=== PATIENT | female | born 1935 | race Caucasian/White ===

== ENCOUNTER 2018-01-01 09:31 | Inpatient (IN) ==
[2018-01-01] MEDS ORDERED: cefOXitin 2,000 MG in Water for inj. (sterile) 20 ML 10 ML IVP ONE (10:02)
[2018-01-01] MEDS ORDERED: Ringers Solution, Lactated 1,000 ML IVC SCH (10:15)
--- NOTE | 2018-01-01 11:31 | Anesthesia Evaluation PreOp ---
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 Other Medical History: Diabetes Type II, Other (Hyperuricemia) Anesthesia History: No Prior Anesthetic Complications, Past Anesthesia Alcohol Use: none Drug use: none Medications and Allergies Amiloride/HCTZ 5-50mg [Moduretic 5-50mg] 0.5 tab PO DAILY 12/10/17 [History] Cinnamon Bark [Cinnamon] 500 mg PO DAILY 12/10/17 [History] Fluticasone Propionate Nasal [Flonase] 1 spray NS BID 12/10/17 [History] Garlic 300 mg PO DAILY 12/10/17 [History] GlipiZIDE XL (24 HR) [Glucotrol XL] 2.5 mg PO DAILY 12/10/17 [History] Ipratropium [place] 1 spr NS BID 12/10/17 [History] Niacin [Niaspan] 500 mg PO DAILY 12/10/17 [History] [place]-3/Dha/Epa/Fish Oil [Fish Oil 1,000 mg Softgel] 1 tab PO DAILY 12/10/17 [ History] Pravastatin Sodium [Pravastatin Sodium] 10 mg PO DAILY 12/10/17 [History] Propranolol [Inderal] 10 mg PO DAILY 12/10/17 [History] Valsartan [Valsartan] 160 mg PO DAILY 12/10/17 [History] 3 Allergy/AdvReac Type Severity Reaction Status Date / Time atorvastatin [From Lipitor] AdvReac Muscle Pain Verified 12/19/17 09:11 metformin AdvReac See Verified 12/19/17 09:11 Comments - Meds/Allergy Pre-op Review Medications Reviewed: Yes Allergies Reviewed: Yes Beta Blockers on Current Med List: Yes If Beta Blockers taken, Date/Time (Last Dose taken): 829 Anesthesia Results - Labs Laboratory Tests 11/15/17 11/15/17 12/19/17 09:23 09:23 09:50 Hgb 13.4 Hct 40.6 Plt Count 270 Sodium 138 Potassium Carbon Dioxide 29 BUN 18 Creatinine Est GFR (Non-Af Amer) Hemoglobin A1c 6.9 H Calcium 9.7 Total Bilirubin 0.6 Albumin 4.0 12/19/17 09:50 Hgb Hct Plt Count Sodium Potassium 4.0 Carbon Dioxide BUN Creatinine 0.82 Est GFR (Non-Af Amer) > 60 Hemoglobin A1c Calcium Total Bilirubin Albumin - Imaging EKG: report reviewed (SINUS BRADYCARDIA WITH SINUS ARRHYTHMIA BORDERLINE LEFT AXIS DEVIATION VOLTAGE CRITERIA FOR LVH) Additional studies: TTE 06/2017: LVEF 60-65%. Normal LV chamber size, wall thickness and function. Mild left ventricular diastolic dysfunction. Normal right ventricular structure and function. Mild pulmonary hypertension. No significant valvular dysfunction. 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 Risks, benefits, and alternatives discussed. Patient wishes to proceed.
--- NOTE | 2018-01-01 12:30 | History & Physical Report ---
Date of Encounter: 01/01/18 Time of Encounter: 12:28 24 Hour HP Update - Instructions Instructions: If the History and Physical is less than 30 days old and was completed prior to A.M. admission and or procedure and has NOT been updated on calendar day of procedure please complete this update prior to performing procedure. - Update Patient reports changes in Medical Condition: No Changes in examination, assessment, or condition: No Changes in Medication: No Preop tests/diagnostics Reviewed: Yes Surgery Remains Indicated: Yes Consent for Planned Operative Procedure(s) Verified: Yes - Pre-Operative Checklist Preoperative Checklist Indicated: Yes Prophylactic Antibiotic Ordered: Yes Home Medications Include Beta Leta: Yes Beta Leta Taken Today (Day of Surgery): Yes
[2018-01-01] MEDS ORDERED: *HR* Rocuronium Bromide 50 MG/5 ML VIAL ONE (13:30)
[2018-01-01] MEDS ORDERED: Lidocaine -MPF 4% 5 ML AMPUL ONE (13:30)
[2018-01-01] MEDS ORDERED: Ondansetron 4 MG/2 ML VIAL ONE (13:30)
[2018-01-01] MEDS ORDERED: *HR* Propofol 200 MG/20 ML VIAL IVP ONE (13:30)
[2018-01-01] MEDS ORDERED: *HR* FentaNYL (PF) 100 MCG/2 ML VIAL ONE (13:30)
[2018-01-01] MEDS ORDERED: *HR* PHENYLEPHRINE 1,000 MCG/10 ML SYRINGE IVP ONE (13:30)
[2018-01-01] MEDS ORDERED: EPHEDrine 50 MG/ML VIAL ONE (13:30)
[2018-01-01] MEDS ORDERED: Dexamethasone 4 MG/ML VIAL ONE (13:30)
[2018-01-01] MEDS ORDERED: Lidocaine -MPF 2% 2 ML VIAL ONE (13:30)
[2018-01-01] MEDS ORDERED: Neostigmine Methylsulfate 3 MG/3 ML SYRINGE ONE (14:09)
[2018-01-01] MEDS ORDERED: *HR* Labetalol 20 MG/4 ML SYRINGE IVP PRN (14:12)
[2018-01-01] MEDS ORDERED: Ondansetron 4 MG/2 ML VIAL IVP ONE (14:12)
[2018-01-01] MEDS ORDERED: *HR* OxyCODONE Immed Rel 5 MG TABLET PO PRN (14:12)
[2018-01-01] MEDS ORDERED: *HR* Promethazine 25 MG/ML VIAL IVP PRN (14:12)
[2018-01-01] MEDS ORDERED: *HR* FentaNYL (PF) 100 MCG/2 ML VIAL IVP PRN (14:12)
[2018-01-01] MEDS ORDERED: MORPHINE SUL Oral CONC 10 MG/0.5 ML ORAL.SYG SL PRN (14:12)
[2018-01-01] MEDS ORDERED: *HR* Morphine 10 MG/ML VIAL ONE (14:49)
--- NOTE | 2018-01-01 16:52 | Operative Note ---
Date of procedure: 01/01/18 Pre-op diagnosis: Sigmoid colon cancer Post-op diagnosis: same Procedure: Robotic sigmoid colon resection with 25 mm EEA stapling Anesthesia: PAM Surgeon: Wyatt Avalos Was there an marketing operations assistant present: No Estimated blood loss (cc): 5 Specimen: Sigmoid colon Condition: stable Disposition: same day Procedure in Detail: After informed consent, patient taken operating room placed supine position. After adequate sedation anesthesia patient was placed in a lithotomy position. After proper timeout a 12 mm cannula site was placed right superior to the umbilicus. Pneumoperitoneum was greater. A 13 mm cannula was placed in right lower quadrant. 5 mm camera was placed in the right upper quadrant. An 8 mm cannula was placed in subxiphoid region followed by another 8 mm in the left lower quadrant. Patient was placed in a headdown position. The robot was docked over the patient's left hip. Small bowel swept out of the pelvis. Rectosigmoid colon was then grasped and retracted cephalad. The peritoneum was then scored level of the sacral promontory. The left ureter was identified and kept on harm's way. The inferior mesenteric artery was then taken with a vessel sealer. The lateral rectosigmoid stalks were taken down the vessel sealer. The dissection was carried out down to approximate 4 cm above the pelvic floor. Rectosigmoid colon was dissected free from the retro-pubic tubercle region. Once it was freed a 45 mm robotic Endo staplers fired across the rectum. Once it was retracted and area was demarcated on the sigmoid colon for transection. Indocyanine green was infused and we had excellent perfusion. The splenic flexure was also taken down and mobilized. This mobilization allowed for less tension on the anastomosis. A counterincision was made in the suprapubic region. Dissection carried down the anterior rectus sheath. The rectus muscles were then divided in the midline with Jasmin clamp. Once they were split the rectosigmoid colon was delivered. Robyn bowel clamps are used to place across the colon proximal and distal and transected. Allis clamps are placed on the bowel and then a pursestring suture device placed on the colon. 3-0 Prolene suture was passed. A pursestring sutures and created and a 25 mm EEA anvil was placed. Suture was tied and secured. Colon was then placed back in the pelvis. The stapler was passed through the anal canal and to the rectal stump and then the spear was placed through the staple line. The anvil was then connected secured and fired. There were 2 excellent donuts. There were several 2-0 silk sutures used to buttress the staple line. A leak test revealed no leak. At that point the procedure was terminated. All incisions are closed with 0 Vicryl suture and 4-0 Vicryl suture. Marcaine was inserted in the Pfannenstiel incision. She tolerated the procedure well.
[2018-01-01] MEDS ORDERED: MORPHINE SUL Oral CONC 10 MG/0.5 ML ORAL.SYG PO PRN (17:02)
[2018-01-01] MEDS ORDERED: Naloxone 0.4 MG/ML INJ IVP PRN (17:12)
[2018-01-01] MEDS ORDERED: 0.9 % Sodium Chloride 1,000 ML IVC SCH (17:12)
--- NOTE | 2018-01-01 17:43 | Anesthesia Evaluation Post Op ---
Date of Encounter: 01/01/18 Time of Encounter: 16:05 Notes: Patient's vital signs have been reviewed. Patient is stable postoperatively and has adequately recovered from anesthesia. Patient is determined to have stable airway patency and respiratory function including respiratory rate and oxygen saturation. Patient has a stable heart rate, blood pressure and adequate hydration. Patients mental status is acceptable. Patients temperature is appropriate. Pain and nausea are adequately controlled. - Discharge PostOp Status: Transfer Patient to floor
[2018-01-01] MEDS ORDERED: Ketorolac 15 MG/ML VIAL IVP SCH (18:00)
[2018-01-01] MEDS: *HR* Heparin 5,000 UNIT/ML VIAL SQ SCH (18:12)
[2018-01-02] MEDS: *HR* Heparin 5,000 UNIT/ML VIAL SQ SCH ×2 (05:52→19:46)
[2018-01-02 06:15] LABS: Hematocrit 36.4 % (35.3-44.9); Hemoglobin 12.3 g/dL (11.5-15.4); Immature Granulocytes % 0.3 % (0-4); Lymphocytes % 11.9 %; Mean Corpuscular HGB Conc 33.8 g/dL (31.6-35.5); Mean Corpuscular Hemoglobin 30.4 pg (28.0-33.3); Mean Corpuscular Volume 89.9 fL (83.0-100.0); Mean Platelet Volume 10.8 fL (9.4-12.4); Monocytes # 0.3 K/mcL (0.0-1.3); Monocytes % 3.9 %; Neutrophils # 7.3 K/mcL (1.6-8.9); Platelet Count 245 K/mcL (140-400); Red Blood Count 4.05 M/mcL (3.82-4.97); Red Cell Distribution Width 13.4 % (11.5-14.5); Segmented Neutrophils % 83.9 %
[2018-01-02 06:32] LABS: BUN/Creatinine Ratio 22 (6-26); Blood Urea Nitrogen 15 mg/dL (8-23); Calcium 8.9 mg/dL (8.6-10.3); Carbon Dioxide 27 mEq/L (23-29); Chloride 99 mEq/L (98-107); Glucose 170 mg/dL (70-105); Osmolality,Calculated 279 (280-300); Potassium 3.9 mEq/L (3.5-5.1); Sodium 132 mEq/L (136-145); eGFR For African Americans > 60 (> 60); eGFR For Non-African Americans > 60 (> 60)
--- NOTE | 2018-01-02 10:24 | General Surgery Progress Note ---
Date of Encounter: 01/02/18 Time of Encounter: 08:00 - Assessment and Plan (1) Malignant neoplasm of sigmoid colon Current Visit: Yes Status: Acute POD1 sigmoid resection with Dr. Avalos (01/01/18). 40mm x 40mm polypoid mass with central ulceration identified on colonoscopy by Dr. Schaffer on 12/10 Patient is tolerating procedure well, she is afebrile, suprapubic incision intact, no drainage, no erythema Plan: Continue clear liquid diet supportive care pain management incentive spirometry ambulate tid with assist EPCDs Subjective Narrative: Ms. Santamaria, POD1 sigmoid colon resection with Dr. Avalos on 01/01 in setting of 40mm by 40mm malignant neoplasm. Patient states her pain is in good control. She has tolerated her clear liquid diet without nausea or vomiting. She has no fevers, has not experienced flatus yet, no dysuria. Objective Vital Signs - Last 8 Hours Temp Pulse Resp BP Pulse Ox 01/02/18 06:59 97.3 F L 56 16 124/63 94 01/02/18 04:39 98.0 F 54 16 109/59 95 Intake and Output 01/01/18 01/02/18 01/02/18 23:59 07:59 15:59 Intake Total 480 / 480 600 / 600 Output Total 150 / 150 300 / 300 500 / 500 Balance 330 / 330 -300 / -300 100 / 100 Intake: Oral 480 / 480 600 / 600 Output: Urine 150 / 150 300 / 300 500 / 500 Other: Meal Dinner clears # Voids 1 - General physical appearance well developed, well nourished, no distress - Eyes normal ocular movement - ENT normal mucosa - Neck Neck exam: no lymphadectomy - Respiratory normal expansion, normal respiratory effort, clear to auscultation - Cardiovascular Cardiovascular exam: Present: RRR, no murmurs/rubs/gallops. Absent: JVD - Abdomen Abdomen: Present: soft Hernia: none - Incision Incision: Present: clean and dry. Absent: inflamed (intact, suprapubic incision non erythematous, no hematoma, no drainage, no evidence of cellulitis) - Integumentary no abnormal pigmentation - Neurologic normal coordination, normal sensation - Psychiatric speech is normal, memory intact - Labs 01/02/18 05:21 01/02/18 05:21 Diabetes panel 01/02/18 Range/Units 05:21 Sodium 132 L (136-145) mEq/L Potassium 3.9 (3.5-5.1) mEq/L Chloride 99 (98-107) mEq/L Carbon Dioxide 27 (23-29) mEq/L BUN 15 (8-23) mg/dL Creatinine 0.68 (0.60-1.20) mg/dL Glucose 170 H (70-105) mg/dL Calcium 8.9 (8.6-10.3) mg/dL Calcium panel 01/02/18 Range/Units 05:21 Calcium 8.9 (8.6-10.3) mg/dL Pituitary panel 01/02/18 Range/Units 05:21 Sodium 132 L (136-145) mEq/L Potassium 3.9 (3.5-5.1) mEq/L Chloride 99 (98-107) mEq/L Carbon Dioxide 27 (23-29) mEq/L BUN 15 (8-23) mg/dL Creatinine 0.68 (0.60-1.20) mg/dL Glucose 170 H (70-105) mg/dL Calcium 8.9 (8.6-10.3) mg/dL Adrenal panel 01/02/18 Range/Units 05:21 Sodium 132 L (136-145) mEq/L Potassium 3.9 (3.5-5.1) mEq/L Chloride 99 (98-107) mEq/L Carbon Dioxide 27 (23-29) mEq/L BUN 15 (8-23) mg/dL Creatinine 0.68 (0.60-1.20) mg/dL Glucose 170 H (70-105) mg/dL Calcium 8.9 (8.6-10.3) mg/dL - VTE Documentation of Mechanical Device: Intermittent pneumatic compression device Consult Discharge Plan - Plan Referrals: Wyatt Avalos DO [Partnered Physician] - 01/14/18 8:45 am
[2018-01-02] MEDS ORDERED: Acetaminophen 325 MG TABLET PO PRN (10:58)
[2018-01-02] MEDS ORDERED: Ibuprofen 800 MG TABLET PO PRN (10:59)
[2018-01-02] MEDS ORDERED: *HR* HYDROcodone/Acet 5/325 mg TABLET PO PRN (10:59)
[2018-01-02] MEDS ORDERED: 0.9 % Sodium Chloride 1,000 ML IVC SCH (10:59)
[2018-01-02] MEDS: (Ipratropium Bromide [Ipratropium Bromide] 1 SPR) NS SCH (15:26)
--- NOTE | 2018-01-02 17:32 | Event Note ---
Date of Encounter: 01/02/18 Time of Encounter: 16:00 Patient POD1 sigmoid resection found to be tachycardic around 1501, patient denying exertional dyspnea, chest discomfort, or shortness of breath. Denies PMH afib. ECG obtained 1556 showed no p waves with venricular rate of 115, 1mm ST depression in v3, no st elevation, no t wave abnormalities, normal R wave progression. Patient was started on her daily propranolol 10mg. Patient re- evaluated 1700 with heart-rate on exam in the 50s, normal s1 s2, no s3 s4, no murmurs, continued to be asymptomatic. Repeat ECG 171 shows sinus bradycardia at 47bpm, normal MD interval, resolution of st depression v3. Patient states she never had a stress test, she reports in 1987 she had a LHC secondary to shortness of breath but does not recall detail beyond her coronaries at that time did not need stenting. Echocardiogram 06/17/17 for sinus bradycardia showed no wall motion abnormalities. EF of 60-65%. Recommend continuing daily propranolol. Tracking signs of volume depletion (VSS stable, creatinine and UOP appropriate). Continue hydration with PO liquids.
[2018-01-02] MEDS: Fluticasone Propionate Nasal 50 MCG/SPRAY BOTTLE NS SCH (22:51)
[2018-01-03] MEDS: (Ipratropium Bromide [Ipratropium Bromide] 1 SPR) NS SCH ×3 (00:32→20:50)
[2018-01-03] MEDS: *HR* Heparin 5,000 UNIT/ML VIAL SQ SCH ×2 (06:21→18:08)
--- NOTE | 2018-01-03 09:58 | Electrocardiograph Report ---
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
--- NOTE | 2018-01-03 10:32 | Discharge Summary ---
Orders not resulted at time of discharge: Pending orders 01/01/18 15:24 Surgical Pathology [PTH] Routine Date of Encounter: 01/03/18 Time of Encounter: 08:00 - Discharge Diagnosis (1) Malignant neoplasm of sigmoid colon Priority: Primary Status: Resolved Comments: Ms. Santamaria is a 82 year old female who presents for planned sigmoid resection with Dr. Avalos on 01/01 in setting of polypoid mass found on colonoscopy 12/10. Patient tolerated procedure well, started on clears / without nausea or vomiting. Incision suprapubically intact, no drainage, no fevers. Patient did have an episode of afib POD1 which resolved after resumption of her home propranolol she takes for hypertension. She did not have dyspnea, chest discomfort, or diaphoresis. She will follow-up in 2 weeks outpatient with [facility]. Today she is ambulating, has good UOP, no fevers. Plan is for conditional discharge today if she continues to tolerate her diet, vitals are stable. General Surgery Exam Initial Vital Signs Temp Pulse Resp BP Pulse Ox 98.2 F 53 18 142/66 95 01/01/18 10:06 01/01/18 10:06 01/01/18 10:06 01/01/18 10:06 01/01/18 10:06 - General physical appearance well developed, well nourished, no distress - Eyes normal ocular movement - ENT normal mucosa - Neck no masses, trachea midline - Respiratory normal expansion, normal respiratory effort, clear to auscultation - Cardiovascular Cardiovascular exam: Present: bradycardia (baseline; 50s), no murmurs/rubs/ gallops. Absent: JVD - Abdomen Abdomen general surgery: Present: soft, non tender Hernia: Present: none - Incision Incision: Present: clean and dry (suprapubic incision without erythema or exudate), intact - Integumentary Integumentary general surgery: Present: no abnormal pigmentation - Neurologic Present: normal coordination, normal sensation - Musculoskeletal Present: normal gait, normal posture - Psychiatric Psychiatric general surgery: Present: speech is normal, memory intact - Hospital Course Hospital course: Ms. Santamaria is a 82 year old female - Time Spent with Patient Total time spent providing and/or coordinating discharge services: - Discharge Medications Prescriptions: OxyCODONE/APAP 5/325 [Percocet 5/325 MG] 1 each PO Q6HR PRN 7 Days #28 tablet PRN Reason: Pain Ibuprofen [Motrin] 800 mg PO Q8HR PRN #42 tablet PRN Reason: Pain Ondansetron HCl [Zofran] 4 mg PO Q8HR PRN #15 tab PRN Reason: Nausea Docusate [Colace] 100 mg PO BID PRN #30 capsule PRN Reason: Constipation Home Medications: Amiloride/HCTZ 5-50mg [Moduretic 5-50mg] 0.5 tab PO DAILY 12/10/17 [History] Cinnamon Bark [Cinnamon] 500 mg PO DAILY 12/10/17 [History] Fluticasone Propionate Nasal [Flonase] 1 spray NS BID 12/10/17 [History] Garlic 300 mg PO DAILY 12/10/17 [History] GlipiZIDE XL (24 HR) [Glucotrol XL] 2.5 mg PO DAILY 12/10/17 [History] Ipratropium [place] 1 spr NS BID 12/10/17 [History] Niacin [Niaspan] 500 mg PO DAILY 12/10/17 [History] [place]-3/Dha/Epa/Fish Oil [Fish Oil 1,000 mg Softgel] 1 tab PO DAILY 12/10/17 [ History] Pravastatin Sodium [Pravastatin Sodium] 10 mg PO DAILY 12/10/17 [History] Propranolol [Inderal] 10 mg PO DAILY 12/10/17 [History] Valsartan [Valsartan] 160 mg PO DAILY 12/10/17 [History] Docusate [Colace] 100 mg PO BID PRN #30 capsule 01/03/18 [Rx] Ibuprofen [Motrin] 800 mg PO Q8HR PRN #42 tablet 01/03/18 [Rx] Ondansetron HCl [Zofran] 4 mg PO Q8HR PRN #15 tab 01/03/18 [Rx] OxyCODONE/APAP 5/325 [Percocet 5/325 MG] 1 each PO Q6HR PRN 7 Days #28 tablet [Rx] Allergies/Adverse Reactions: 3 Allergy/AdvReac Type Severity Reaction Status Date / Time atorvastatin [From Lipitor] AdvReac Muscle Pain Verified 12/19/17 09:11 metformin AdvReac See Verified 12/19/17 09:11 Comments Date of admission: 01/01/18 16:17 Primary care physician: Homero Philip MD - Patient Status Disposition: Home, Self-Care Condition: Good Functional capacity at discharge: independent ambulation Overall status at discharge: patient is progressing back to baseline - Discharge Instructions Follow Up With: Wyatt Avalos DO [Partnered Physician] - 01/14/18 8:45 am - Diet and Activity Activity: increase activity as tolerated Diet: regular diet
[2018-01-03] MEDS: Valsartan 160 MG TABLET PO SCH (10:38)
[2018-01-03] MEDS: Fluticasone Propionate Nasal 50 MCG/SPRAY BOTTLE NS SCH ×2 (10:46→20:49)
--- NOTE | 2018-01-03 15:54 | General Surgery Progress Note ---
Date of Encounter: 01/03/18 Time of Encounter: 09:00 - Assessment and Plan (1) Malignant neoplasm of sigmoid colon Current Visit: Yes Status: Resolved POD2 sigmoid resection with Dr. Avalos (01/01/18). 40mm x 40mm polypoid mass with central ulceration identified on colonoscopy by Dr. Schaffer on 12/10 Patient is tolerating procedure well, she is afebrile, suprapubic incision intact, no drainage, no erythema Plan: Continue full liquid diet Will keep for another day in setting of dilated colon on imaging (likely adynamic ileus) supportive care pain management incentive spirometry ambulate tid with assist EPCDs Subjective Patient reports: no new complaints, tolerating liquids well, voiding w/o difficulty, no flatus, no bowel movement, afebrile Objective Vital Signs - Last 8 Hours Temp Pulse Resp BP Pulse Ox 01/03/18 11:10 98.7 F 51 16 147/73 93 Intake and Output 01/02/18 01/03/18 01/03/18 23:59 07:59 15:59 Intake Total 600 / 600 100 / 100 480 / 480 Output Total 800 / 800 500 / 500 700 / 700 Balance -200 / -200 -400 / -400 -220 / -220 Intake: Oral 600 / 600 100 / 100 480 / 480 Output: Urine 800 / 800 500 / 500 700 / 700 Other: Meal clears Breakfast Weight 88.5 kg Patient Weight 01/03/18 23:59 Weight 88.5 kg - General physical appearance well developed, well nourished, no distress - Eyes normal ocular movement - ENT normal mucosa - Neck Neck exam: no masses - Respiratory normal expansion, normal respiratory effort, clear to auscultation - Cardiovascular Cardiovascular exam: Present: regular rhythm, no murmurs/rubs/gallops. Absent: JVD - Abdomen Abdomen: Present: bowel sounds present, soft, non tender. Absent: tympanic, guarding, rebound, rigid - Incision Incision: Present: clean and dry, intact - Integumentary no abnormal pigmentation - Neurologic normal coordination, normal sensation - Musculoskeletal normal posture - Psychiatric speech is normal, memory intact - Labs 01/02/18 05:21 01/02/18 05:21 - VTE Documentation of Mechanical Device: Intermittent pneumatic compression device Consult Discharge Plan - Plan Referrals: Wyatt Avalos DO [Partnered Physician] - 01/14/18 8:45 am Homero Philip MD [Primary Care Provider] - 01/07/18 2:45 pm Prescriptions: OxyCODONE/APAP 5/325 [Percocet 5/325 MG] 1 each PO Q6HR PRN 7 Days #28 tablet PRN Reason: Pain Ibuprofen [Motrin] 800 mg PO Q8HR PRN #42 tablet PRN Reason: Pain Ondansetron HCl [Zofran] 4 mg PO Q8HR PRN #15 tab PRN Reason: Nausea Docusate [Colace] 100 mg PO BID PRN #30 capsule PRN Reason: Constipation
--- NOTE | 2018-01-04 06:19 | Electrocardiograph Report ---
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
[2018-01-04] MEDS: *HR* Heparin 5,000 UNIT/ML VIAL SQ SCH (06:25)
[2018-01-04 07:06] LABS: Basophils # 0.1 K/mcL (0.0-0.2); Basophils % 0.7 %; Eosinophils # 0.1 K/mcL (0.0-0.6); Eosinophils % 1.5 %; Hematocrit 39.2 % (35.3-44.9); Immature Granulocytes % 0.4 % (0-4); Lymphocytes # 2.7 K/mcL (0.6-4.6); Mean Corpuscular HGB Conc 33.2 g/dL (31.6-35.5); Mean Corpuscular Hemoglobin 30.4 pg (28.0-33.3); Mean Corpuscular Volume 91.8 fL (83.0-100.0); Mean Platelet Volume 10.7 fL (9.4-12.4); Monocytes # 0.7 K/mcL (0.0-1.3); Monocytes % 8.3 %; Neutrophils # 4.5 K/mcL (1.6-8.9); Platelet Count 266 K/mcL (140-400); Red Blood Count 4.27 M/mcL (3.82-4.97); Segmented Neutrophils % 56.1 %
[2018-01-04 07:19] LABS: BUN/Creatinine Ratio 16 (6-26); Blood Urea Nitrogen 12 mg/dL (8-23); Calcium 9.8 mg/dL (8.6-10.3); Carbon Dioxide 32 mEq/L (23-29); Chloride 98 mEq/L (98-107); Glucose 125 mg/dL (70-105); Osmolality,Calculated 283 (280-300); Potassium 4.1 mEq/L (3.5-5.1); Sodium 136 mEq/L (136-145); eGFR For African Americans > 60 (> 60); eGFR For Non-African Americans > 60 (> 60)
[2018-01-04 07:23] VITALS: BP 135/58
[2018-01-04] MEDS: Valsartan 160 MG TABLET PO SCH (08:46)
[2018-01-04] MEDS: (Ipratropium Bromide [Ipratropium Bromide] 1 SPR) NS SCH (08:46)
[2018-01-04] MEDS: Fluticasone Propionate Nasal 50 MCG/SPRAY BOTTLE NS SCH (08:46)
== END 2018-01-04 10:53 | disposition home or self-care (01) | DRG 330 ==
LOC: SAMDAY 09:31 → 3ANU 16:17
PROVIDERS: ADMIT Surgery; ATTEND Surgery

== ENCOUNTER 2019-06-30 18:38 | Inpatient (IN) ==
[2019-06-30 19:26] LABS: Basophils % 0.1 %; Eosinophils % 0.1 %; Hematocrit 33.3 % (35.3-44.9); Hemoglobin 12.2 g/dL (11.5-15.4); Immature Granulocytes % 0.6 % (0-4); Lymphocytes # 1.2 K/mcL (0.6-4.6); Lymphocytes % 7.7 %; Mean Corpuscular HGB Conc 36.6 g/dL (31.6-35.5); Mean Corpuscular Hemoglobin 31.5 pg (28.0-33.3); Mean Platelet Volume 9.7 fL (9.4-12.4); Monocytes # 1.7 K/mcL (0.0-1.3); Monocytes % 10.6 %; Neutrophils # 12.8 K/mcL (1.6-8.9); Platelet Count 345 K/mcL (140-400); Red Blood Count 3.87 M/mcL (3.82-4.97); Red Cell Distribution Width 16.1 % (11.5-14.5); Segmented Neutrophils % 80.9 %; White Blood Count 15.8 K/mcL (4.3-11.1)
[2019-06-30 19:45] LABS: BUN/Creatinine Ratio 75 (6-26); Blood Urea Nitrogen 58 mg/dL (8-23); Carbon Dioxide 27 mEq/L (23-29); Chloride 79 mEq/L (98-107); Potassium 4.6 mEq/L (3.5-5.1); Sodium 116 mEq/L (136-145)
[2019-06-30 19:46] LABS: Calcium 9.2 mg/dL (8.6-10.3); Glucose 52 mg/dL (70-105); Osmolality,Calculated 256 (280-300); eGFR For African Americans > 60 (> 60); eGFR For Non-African Americans > 60 (> 60)
[2019-06-30] MEDS ORDERED: Dextrose Gel 15 GM/37.5 ML TUBE PO PRN ×2 (23:11)
[2019-06-30] MEDS ORDERED: *HR* Dextrose 50 % in Water (Syg) 50 ML SYRINGE IVP PRN (23:11)
[2019-06-30] MEDS ORDERED: D5% in Water 1,000 ML IVC PRN (23:11)
[2019-06-30] MEDS ORDERED: 0.9 % Sodium Chloride 1,000 ML IVC SCH (23:45)
[2019-06-30] MEDS ORDERED: Naloxone 0.4 MG/ML INJ IVP PRN (23:47)
[2019-06-30] MEDS ORDERED: Ondansetron ODT 4 MG TAB.RAPDIS SL PRN (23:47)
[2019-07-01 00:30] LABS: INR 2.5
[2019-07-01 00:39] LABS: Magnesium 1.6 mg/dL (1.6-2.6)
[2019-07-01 00:41] LABS: BUN/Creatinine Ratio 81 (6-26); Blood Urea Nitrogen 57 mg/dL (8-23); Calcium 9.1 mg/dL (8.6-10.3); Carbon Dioxide 26 mEq/L (23-29); Chloride 79 mEq/L (98-107); Glucose 74 mg/dL (70-105); Osmolality,Calculated 254 (280-300); Potassium 4.3 mEq/L (3.5-5.1); Sodium 115 mEq/L (136-145); eGFR For African Americans > 60 (> 60); eGFR For Non-African Americans > 60 (> 60)
[2019-07-01 00:47] LABS: Bilirubin,Urine Negative (Negative); Blood,Urine Negative (Negative); Clarity,Urine Cloudy (Clear); Color,Urine Yellow (Yellow); Glucose,Urine (UA) Normal (Normal); Ketones,Urine Negative (Negative); Leukocyte Esterase,Urine Moderate (Negative); Nitrite,Urine Negative (Negative); Protein,Urine Negative (Neg-Trace); Urobilinogen,Urine Normal (Normal)
[2019-07-01 00:49] LABS: Hyaline Casts,Urine None Seen per lpf (None-Few); Squamous Epithelial Cell,Urine Many per lpf (None-Few)
[2019-07-01 00:57] LABS: Sodium, Urine 35.3 mEq/L
[2019-07-01 01:02] LABS: Bacteria,Urine Moderate per hpf (None-Few)
[2019-07-01] MEDS ORDERED: *HR* LORazepam 0.5 MG TABLET PO PRN (02:27)
[2019-07-01] MEDS: Sennosides/Docusate Sodium TABLET PO SCH ×2 (03:40→08:25)
[2019-07-01] MEDS ORDERED: *HR* OxyCODONE/APAP 5/325 TABLET PO PRN (04:17)
[2019-07-01 04:26] LABS: Albumin 2.7 g/dL (3.5-5.7); Albumin/Globulin Ratio 0.9 (1.1-2.2); Bilirubin,Direct 0.8 mg/dL (0.0-0.2); Bilirubin,Indirect 0.8 mg/dL (0.0-1.0); Bilirubin,Total 1.6 mg/dL (0.3-1.0); Globulin 2.9 g/dL (2.4-3.5); Total Protein 5.6 g/dL (6.4-8.9)
[2019-07-01 04:29] LABS: BUN/Creatinine Ratio 85 (6-26); Blood Urea Nitrogen 55 mg/dL (8-23); Calcium 9.2 mg/dL (8.6-10.3); Carbon Dioxide 27 mEq/L (23-29); Chloride 79 mEq/L (98-107); Glucose 65 mg/dL (70-105); Osmolality,Calculated 255 (280-300); Potassium 4.5 mEq/L (3.5-5.1); Sodium 116 mEq/L (136-145); eGFR For African Americans > 60 (> 60); eGFR For Non-African Americans > 60 (> 60)
[2019-07-01] MEDS ORDERED: *HR* LORazepam 2 MG/ML VIAL IVP PRN (04:37)
[2019-07-01] MEDS ORDERED: Lactulose Oral Soln 20 GM/30 ML UDC PO PRN (06:00)
[2019-07-01] MEDS: Insulin LISPRO 300 UNITS/3 ML VIAL SQ SCH ×2 (08:25→12:53)
[2019-07-01] MEDS ORDERED: *HR* Rivaroxaban 10 MG TABLET PO SCH (09:00)
[2019-07-01 09:05] LABS: BUN/Creatinine Ratio 78 (6-26); Blood Urea Nitrogen 54 mg/dL (8-23); Calcium 8.9 mg/dL (8.6-10.3); Carbon Dioxide 28 mEq/L (23-29); Chloride 81 mEq/L (98-107); Glucose 82 mg/dL (70-105); Osmolality,Calculated 254 (280-300); Potassium 4.4 mEq/L (3.5-5.1); Sodium 115 mEq/L (136-145); eGFR For African Americans > 60 (> 60); eGFR For Non-African Americans > 60 (> 60)
[2019-07-01] MEDS ORDERED: *HR* OxyCODONE/APAP 10/325 TABLET PO ONE (15:28)
[2019-07-01 16:02] VITALS: BP 114/71
[2019-07-01] MEDS ORDERED: Insulin LISPRO 300 UNITS/3 ML VIAL SQ SCH (21:00)
== END 2019-07-01 17:31 | disposition hospice, home (50) | DRG 644 ==
LOC: EMEROOARM 18:38 → 2ANU 18:38 → SUATTDRO 21:47 → 2ANU 22:29
PROVIDERS: ADMIT Internal Medicine; ATTEND Internal Medicine